=== PATIENT | female | born 1985 | race Caucasian/White ===

== ENCOUNTER 2019-02-20 09:56 | Inpatient (IN) | payer BC, OTHER ==
[~2019-02-20 09:56] MED LIST: Buffered Lidocaine 1% SYRIN* 1 ML/SYRINGE INTRADERM ONE; Lactated Ringers 1000 ML Bag* 1,000 ML IV SCH; Sodium Citrate/Citric Acid* 15 ML UDC PO ONE
[2019-02-20] MEDS ORDERED: Sodium Citrate/Citric Acid* 15 ML UDC ONE (10:05)
[2019-02-20] MEDS ORDERED: ceFAZolin 1 GM ADVAN(*) 1 GM ADDV.VIAL IVPB ONE (10:05)
[2019-02-20] MEDS ORDERED: Heparin VIAL(*) 5000 UNITS/ML VIAL (FIVE THOUSAND) ONE (10:05)
[2019-02-20] MEDS ORDERED: ceFAZolin 2 GM in NS PREMIX(*) 2 GM/100 ML BAG IVPB ONE (10:05)
[2019-02-20] MEDS ORDERED: Bupivacaine 0.25% SDV PF* 10 ML VIAL INJ ONE (11:51)
[2019-02-20] MEDS ORDERED: Methylene Blue 0.5 %* 50 MG/10 ML AMP IV ONE (11:54)
[2019-02-20] MEDS ORDERED: Lidocaine 2% PF * 5 ML VIAL ONE (12:07)
[2019-02-20] MEDS ORDERED: Rocuronium* 10 MG/ML VIAL ONE ×2 (12:07→13:09)
[2019-02-20] MEDS ORDERED: Propofol* 10 MG/ML 20 ML BTL ONE (12:07)
[2019-02-20] MEDS ORDERED: fentaNYL* 50 MCG/ML 2 ML VIAL (100 MCG VIAL) ONE ×3 (12:09→15:01)
[2019-02-20] MEDS ORDERED: Midazolam* 1 MG/ML 2 ML VIAL (2 MG) ONE (12:09)
[2019-02-20] MEDS ORDERED: KETAMINE HCL* 50 MG/ML 10 ML VIAL ONE (12:23)
[2019-02-20] MEDS ORDERED: Dexamethasone IV* 4 MG/ML 1 ML (4 MG) ONE (12:34)
[2019-02-20] MEDS ORDERED: Glycopyrrolate IV* 0.2 MG/ML 1 ML VIAL ONE (13:35)
[2019-02-20] MEDS ORDERED: Neostigmine Methylsulfate* 3 MG/3 ML SYRINGE ONE (13:35)
[2019-02-20] MEDS ORDERED: Acetaminophen IV 1GM/100ML * 1,000 MG/100 ML VIAL IVPB ONE (14:08)
[2019-02-20] MEDS ORDERED: DiMENhydriNATE IV* 50 MG/ML VIAL IV PUSH PRN (14:08)
[2019-02-20] MEDS ORDERED: Naloxone* 0.4 MG/ML 1 ML VIAL IV PRN (14:08)
[2019-02-20] MEDS ORDERED: Scopolamine 1.5 mg* PATCH TRANSDERM PRN (14:08)
[2019-02-20] MEDS ORDERED: HYDROmorphone INJ* 0.5 MG/0.5 ML SYRINGE IV SLOW PU PRN (14:36)
[2019-02-20] MEDS ORDERED: Acetaminophen ADULT LIQ* 650 MG/20.3 ML UDC PO PRN (14:36)
--- NOTE | 2019-02-20 14:36 | BRIEFOPN ---
Brief Operative/Procedure Note - Operation Details Pre-Op Diagnosis: Morbid Obesity Post-Op Diagnosis: Same Procedures: Laproscopic Kira en Y Gastric Bypass Surgeon(s)/Proceduralists: Marito. Assist: CHEO Peterson; MARLEEN Hill Anesthesia: GET Estimated Blood Loss: 20 ml Findings: As above Specimen(s)/Culture(s) Description: None Complications: None
[2019-02-20] MEDS ORDERED: DiMENhydriNATE IV* 50 MG/ML VIAL ONE (14:37)
[2019-02-20] MEDS ORDERED: Scopolamine 1.5 mg* PATCH ONE (14:37)
[2019-02-20] MEDS ORDERED: Acetaminophen IV 1GM/100ML * 100 ML ONE (15:01)
[2019-02-20] MEDS: fentaNYL* 50 MCG/ML 2 ML VIAL (100 MCG VIAL) IV PRN ×2 (15:04→15:10)
[2019-02-20] MEDS ORDERED: Ondansetron INJ* 2 MG/ML VIAL ONE (15:07)
[2019-02-20] MEDS: Ondansetron INJ* 2 MG/ML VIAL IV PRN (15:08)
[2019-02-20] MEDS: Lactated Ringers 1000 ML Bag* 1,000 ML IV SCH ×2 (15:59→22:17)
[2019-02-20] MEDS: Ketorolac INJ* 30 MG/ML 1 ML VIAL IV SCH ×2 (16:18→22:18)
[2019-02-20] MEDS: HYDROmorphone INJ1* 1 MG/ML SYRINGE IV SLOW PU PRN (19:26)
--- NOTE | 2019-02-20 21:13 | OP ---
CC: [facility]; Claudio Turner MD * DATE OF OPERATION: 02/20/19 - ROOM #351 DATE OF : 87 SURGEON: Sven Devi MD MAGNETIC HEALER: CHEO Nelson ANESTHESIOLOGIST: Ray Orosco DO. ANESTHESIA: General endotracheal. PRE-OP DIAGNOSIS: Clinically severe obesity. POST-OP DIAGNOSIS: Clinically severe obesity. OPERATIVE PROCEDURE: Laparoscopic Kira-en-Y gastric bypass. ESTIMATED BLOOD LOSS: Less than 20 mL. IV FLUIDS: Crystalloids. SPECIMENS: None. DRAINS: None. COMPLICATIONS: None. COUNTS: Instrument, needle, and sponge counts correct. DESCRIPTION OF PROCEDURE: The patient was brought to the operating room, placed on the table supine. Sequential compression devices were placed on both lower extremities. General anesthesia was administered. The abdomen was prepped and draped in the usual sterile fashion. A time out was performed. She did receive appropriate intravenous antibiotics. Local anesthetic was infiltrated into the skin and soft tissue prior to making each incision. Entry to the abdomen was through a left upper quadrant incision accommodating a 12 mm Optical trocar. After accessing the peritoneal cavity, carbon dioxide was insufflated to a pressure of 15 mmHg. Under direct visualization, 12 mm bladeless trocar was placed in the supraumbilical midline and in the right upper quadrant. 5-mm trocars were placed in the left upper quadrant medially, and left upper quadrant laterally. A Ashly liver retractor was placed percutaneously in the subxiphoid position and used to elevate the left lobe of the liver. Liver appeared normal in size. Gastric anatomy is normal. Mobilization of the cardia of the stomach away from the left bisi of the diaphragm was performed using a combination of blunt dissection and LigaSure. Next, the perigastric dissection was undertaken of the lesser curvature. The lesser sac was entered with several firings of the Endo MERARY stapler with mccurdy cartridges. The gastric pouch was created approximating 15 to 30 mL volume. Staple lines were noted to be intact and hemostatic. The omentum was retracted cephalad divided down the midline with a LigaSure. The transverse colon was retracted cephalad and the Ligament of Treitz was identified. The jejunum was measured out 75 cm. At this point, the limb was sutured to the gastric pouch on the lateral left staple line. A running 2-0 silk was used for this suture. The gastrojejunal anastomosis was then created with the Endo-MERARY stapler with a 30 mm mccurdy cartridge. Common gastroenterotomy was run close over a 34-Afghan gastric lavage tube with 3-0 PDS. The loop of the jejunum was then divided to the left of the anastomosis. The anastomosis was then tested with methylene blue dye instilled through the 34-Afghan orogastric tube. Methylene blue dye testing revealed no leaks. The blue dye solution and tube were removed. The Kira limb was measured out 75 cm and at this point, a functional end-to- side jejunojejunostomy was created with a 60 mm mccurdy Endo MERARY stapler. The common enterotomy was run closed with 3-0 PDS running to and fro and tying to itself. The mesenteric defect was closed with interrupted 3-0 silk. Anti- obstruction suture was placed proximally at the anastomosis with 3-0 silk as well. Hemostasis was assured. Orientation of the Kira limb was assured. Ashly liver retractor, ports and carbon dioxide were removed. Skin incisions were closed with 4-0 Monocryl in a subcuticular fashion. DermaFlex glue was applied to the incisions. The patient tolerated the procedure, was extubated uneventfully and transferred to Recovery in stable condition. [id number]/[facility] #: [id number] [facility]
[2019-02-20] MEDS: Heparin VIAL(*) 5000 UNITS/ML VIAL (FIVE THOUSAND) SUBCUT SCH (22:18)
[2019-02-20] MEDS: Famotidine IV* 10 MG/ML 2 ML (20 mg) IV SLOW PU SCH (22:18)
[2019-02-21] MEDS: Ondansetron INJ* 2 MG/ML VIAL IV PRN ×2 (02:22→15:17)
[2019-02-21] MEDS: HYDROmorphone INJ1* 1 MG/ML SYRINGE IV SLOW PU PRN ×2 (02:23→11:50)
[2019-02-21] MEDS: Ketorolac INJ* 30 MG/ML 1 ML VIAL IV SCH ×4 (04:09→22:15)
[2019-02-21] MEDS: Lactated Ringers 1000 ML Bag* 1,000 ML IV SCH ×2 (05:33→13:13)
[2019-02-21] MEDS: Heparin VIAL(*) 5000 UNITS/ML VIAL (FIVE THOUSAND) SUBCUT SCH ×3 (05:36→22:18)
[2019-02-21] MEDS: Famotidine IV* 10 MG/ML 2 ML (20 mg) IV SLOW PU SCH ×2 (08:04→22:14)
--- NOTE | 2019-02-21 12:28 | PN ---
Progress Note - Progress Note Date of Service: 02/21/19 SOAP: Subjective: Feels, "better than expected.". Not much pain. No N/V. Objective: Vital Signs Temp 98.3 F 02/21/19 11:34 Pulse 79 02/21/19 11:34 Resp 16 02/21/19 11:50 BP 111/57 02/21/19 11:34 Pulse Ox 97 02/21/19 11:34 gen: NAD abd: ND, incis c/d/i, no erythema; soft and min tender. Intake & Output 02/20/19 02/21/19 02/21/19 18:59 06:59 18:59 Intake Total 900 1974 Output Total 250 500 Balance 900 1725 -500 Weight 287 lb Intake: IV Fluids 900 1974 LR 900 1974 Oral 0 Output: Urine 250 500 Assessment: POD#1. Doing well. Plan: Adv diet. Amb. Home tomorrow. SACMA to cover me.
[2019-02-21] MEDS: D5W 1/2 NS KCl 20 Meq 1000 ML* 1,000 ML IV SCH (15:17)
[2019-02-22] MEDS: D5W 1/2 NS KCl 20 Meq 1000 ML* 1,000 ML IV SCH ×2 (00:01→08:08)
[2019-02-22] MEDS: HYDROcodone/ACET. 7.5/325 LIQ* 15 ML UDC PO PRN ×2 (02:38→08:08)
[2019-02-22] MEDS: Ketorolac INJ* 30 MG/ML 1 ML VIAL IV SCH ×2 (03:53→09:05)
[2019-02-22] MEDS: Heparin VIAL(*) 5000 UNITS/ML VIAL (FIVE THOUSAND) SUBCUT SCH (06:31)
[2019-02-22] MEDS: Famotidine IV* 10 MG/ML 2 ML (20 mg) IV SLOW PU SCH (08:08)
[2019-02-22] MEDS: Ondansetron INJ* 2 MG/ML VIAL IV PRN (09:05)
[2019-02-22 11:31] VITALS: BP 120/70
--- NOTE | 2019-02-22 12:51 | DCNOTE ---
Discharge Note Surgeon: Marito Admit Date:02/20/19 Discharge Date:02/22/19 D/C diagnosis: morbid obesity Reason For Admission: morbid obesity Assessment of Condition at Discharge: stable Date of D/C PEX: Gen: NAD Chest: CTA B/L CVS: RRR ABD: Obese, soft, incisions C/D/I, EXT: Calves soft B/L Vital Signs Temp 98.7 F 02/22/19 11:31 Pulse 68 02/22/19 11:31 Resp 16 02/22/19 11:31 BP 120/70 02/22/19 11:31 Pulse Ox 96 02/22/19 11:31 Intake & Output 02/21/19 02/22/19 02/22/19 18:59 06:59 18:59 Intake Total 1960 1650 120 Output Total 500 1220 Balance 1460 430 120 Intake: IV Fluids 1900 990 D5W 1/2 NS 20 meq KCL 990 LR 1900 Oral 60 660 120 Output: Urine 500 1220 Other: Estimated Void Large Procedures Performed: laparoscopic Kira en Y gastric bypass Treatment Rendered:post op tx to surgical care unit. patient toleated diet advance to bariatric clear liquids 4x 30cc per hour. + flatus. had some nausea from liquid hydrocodone, was advised try half dose and liquid tylenol. wished to go home Discharge instructions were given to the patient regarding Diet, Medications, Activity, and post operative Follow up. All Questions were answered. Discharged Home in Stable Condition on DATE-02/22/19
[2019-02-23] MEDS ORDERED: Scopolamine PATCH Remove* 1 NOTE MISC PATCH OFF ONE (14:30)
== END 2019-02-22 13:00 | disposition home or self-care (01) | DRG 403 ==
LOC: AA 09:56 → SSU 16:05
PROVIDERS: ADMIT Surgery; ATTEND Surgery
PROC: 0D164ZA Bypass Stomach to Jejunum, Percutaneous Endoscopic Approach (ICD-10-PCS; principal; 2019-02-20 11:45)
DX: E66.01 Morbid (severe) obesity due to excess calories (principal); R11.0 Nausea; T40.2X5A Adverse effect of other opioids, initial encounter; Y92.239 Unspecified place in hospital as the place of occurrence of the external cause; I10 Essential (primary) hypertension; K21.9 Gastro-esophageal reflux disease without esophagitis; E28.2 Polycystic ovarian syndrome; R73.03 Prediabetes; F41.9 Anxiety disorder, unspecified; G47.33 Obstructive sleep apnea (adult) (pediatric); F31.9 Bipolar disorder, unspecified; Z28.21 Immunization not carried out because of patient refusal; Z68.42 Body mass index [BMI] 45.0-49.9, adult; Z87.891 Personal history of nicotine dependence
CPT/HCPCS: 43644; 81025; A9270-GY; C1776; J0690; J1100; J1170; J1240; J1644; J1885; J2250; J2405; J2704; J2710; J3010; J3490